=== PATIENT | female | born 1995 | race American Indian/Alaskan Native ===

== ENCOUNTER 2019-03-09 00:25 | Inpatient (IN) | payer MEDICAID ==
[~2019-03-09 00:25] MED LIST: Acetaminophen 325 MG Tab PO PRN; Carboprost Tromethamine 250 MCG/1 ML Amp IM PRN; Lactated Ringers 500 ML IV ONE; Lidocaine 1% 30 ML SDV INJECT PRN; Methylergonovine 0.2 MG/1 ML Amp IM PRN; Misoprostol 400 MCG (4 X 100 MCG TAB) RECTAL PRN; Ondansetron 4 MG/2 ML SDV IV PRN; Oxytocin/Normal Saline 30 UNIT/500 ML BAG IV SCH; Sodium Chloride 0.9% 10 ML Syringe FLUSH PRN; Tranexamic Acid 1,000 MG in Sodium Chloride 0.9% 100 ML IV PRN
[2019-03-09] MEDS: Misoprostol 25 MCG (1/4 of 100 MCG) Tab VAG PRN ×2 (01:38→05:28)
[2019-03-09] MEDS ORDERED: Nalbuphine 10 MG/1 ML Vial IM PRN (01:48)
[2019-03-09] MEDS ORDERED: hydrOXYzine HCl 25 MG Tab PO ONE (01:48)
--- NOTE | 2019-03-09 10:08 | OBOUT ---
DATE: 03/09/2019 TIME: 0048 hours to 0108 hours. REASON FOR NST: 1. Intrauterine at 37 weeks, confirmed by 30-1/7 week ultrasound. 2. Intrahepatic cholestasis of . 3. GBS negative. 4. History of positive gonorrhea and chlamydia during the , treated, and negative on 02/26/2019. 5. Hep C highly positive antibody. 6. Positive amphetamine on urine drug screen on 01/14/2019, and admitted to smoking meth on Saturday03/04/2019. 7. History of HELLP syndrome in 2012. 8. History of 20 second shoulder dystocia, with methamphetamine and THC in previous . 9. 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 10.G4, P3-0-0-3. NST INTERPRETATION: During this time period, heart tone baseline is approximately 125 to 130, there are at least two 15 x 15 beat per minute accelerations, making this reaction. It is also noted to be reassuring. Tocometer reveals potential of 2 contractions. The patient describes occasional cramping. ASSESSMENT: 1. Nonstress test, reactive and reassuring. 2. Tocometer with contractions. PLAN: Please see admit history and physical done through [facility] with records called for, reviewed, and supplemented by patient history in regard to this. Changes include admitting to meth as above, father of baby not involved, not being on Valtrex or other medications as recommended. Shortly after this NST was performed, vaginal exam revealed her to be 1.5 to 2 cm, 60% to 75% effaced, -1 to - 2 station, vertex suspected, and 25 mcg of Cytotec was placed after proper consent obtained. Vitals: Blood pressure 126/70, heart rate 90, and temperature 98.6. Please see H and P for further details. Cytotec placed as above. We will continue to follow clinically and closely. [facility] /[id number]
[2019-03-09] MEDS: Lactated Ringers 1,000 ML IV SCH ×2 (10:53→12:34)
--- NOTE | 2019-03-09 11:50 | PN ---
DATE: 03/09/2019 SUBJECTIVE: The patient does not feel much of her contractions. She thinks she has cramping occasionally. OBJECTIVE: heart tones in the 140s to 150s range, acceleration seen. Tocometer reveals contractions every 2 to 3 minutes. Vaginal exam reveals her to be 3 cm, 75% effaced, 0 to +1 station, vertex suspected. Artificial rupture of membranes done after discussion with the patient yielding copious amounts of fluid. Labs returned. Hemoglobin 10.9. Urine drug screen positive for methamphetamines and amphetamines. The patient is now status post Cytotec x2. ASSESSMENT: Intrauterine at 37 weeks, confirmed with 30-/7-week ultrasound complicated by intrahepatic cholestasis of , now status post Cytotec x2 and artificial rupture of membranes. We will continue to follow clinically and closely. The patient states that she does go fast sometimes when she is in active labor, and we will follow along closely. The patient does have a history of HSV serology that was positive, did not take her antiviral as instructed. She does not have any active lesions by my evaluation earlier today or at this time. She denies any vaginal pain. PLAN: We will continue to follow clinically and closely. [facility] /[id number]
--- NOTE | 2019-03-09 11:56 | PN ---
DATE: 03/09/2019 SUBJECTIVE: The patient is feeling contractions. OBJECTIVE: heart tones are in the 140s to 150s range. Tocometer reveals contractions every 2 to 4 minutes apart. Vaginal exam reveals her to be 4 cm, 80% effaced, 0 to -1 station, vertex suspected. Vaginal leaking still persists. ASSESSMENT AND PLAN: Intrauterine at 37 weeks complicated by intrahepatic cholestasis of , now status post Cytotec x2, then artificial rupture of membranes with slow cervical dilation. We will start Pitocin augmentation and follow clinically and closely. Plans were discussed with the patient. She understands and agrees. [facility] /[id number]
[2019-03-09] MEDS ORDERED: EPINEPHrine 1 MG/1 ML Amp ONE (12:29)
[2019-03-09] MEDS ORDERED: fentaNYL 100 MCG/2 ML SDV ONE (12:29)
[2019-03-09] MEDS ORDERED: Naloxone 2 MG/2 ML Syringe ONE (12:48)
[2019-03-09] MEDS ORDERED: Simethicone 80 MG Tab.Chew PO PRN (13:28)
[2019-03-09] MEDS ORDERED: Oxytocin 10 Units/1 ML SDV IM PRN (13:28)
[2019-03-09] MEDS ORDERED: Sodium Chloride 0.9% 10 ML Syringe FLUSH PRN (13:28)
[2019-03-09] MEDS ORDERED: Benzocaine/Menthol 20%-0.5% Spray 56 GM Canister TOP PRN (13:28)
[2019-03-09] MEDS ORDERED: Zolpidem 5 MG Tab PO PRN (13:28)
--- NOTE | 2019-03-09 13:44 | PCM.PRNOTE ---
- Free Text/Narrative Note: Requested to provide analgesia to full term patient in severe pain. Upon entering the room, patient is lying in bed complaining of severe abdominal/ pelvic pain and discomfort. Pt is positive for methamphetamines and is shaking head left to right, protruding tongue, opening eyes really wide then closing them, and unable to controllably able to hold still. Procedure was discussed with patient including adverse outcomes and expectations but patient is not concentrating on instructions. Pt consented to analgesia, SAB/IT. Pt placed into a proper sitting position but unable to hold still. Landmarks for SAB/IT were identified and marked. Hands were washed and appropriate PPE was applied. Back was prepped with betadine x3. A sterile, transparent, fenestrated drape was applied. Excess betadine was removed. Pt continues to move uncontrollably even without contractions. Using 3 mL of a 1% lidocaine solution, a skin wheel was placed at the L2/L3 interspace. A 24 ga (4 inch) Pencan spinal needle was inserted until positive for CSF. Negative for heme or paresthesias. Injected fentanyl 15 mcg, sufentanil 15 mcg, and 7.5 mg of a 0.75% bupivacaine solution with an epi wash. Pt was placed left lateral position for approximately 20 minutes. Within the first three minutes, pt received relief from the intrathecal and drifted off to sleep. While sleeping, the patient is apneic. She wakes up violently and thrashes arms and head from side to side. Pt was monitored for several minutes with the same results. FHR staying in the 110s to 120s. I elected to give naloxone slowly. First dose was 0.25 mg. Respirations were 1/min and shallow. Repeated the dose in 5 minutes with slightly better results. Third dose was 0.5 mg and patient is awake. Dr Castillo here to assess the patient. Patient was complete and baby was delivered without complications. Will continue to monitor. Procedure Date & Time: 03/09/19 [id number]
[2019-03-09] MEDS: Docusate Sodium 100 MG Cap PO PRN (20:46)
[2019-03-09] MEDS: Ibuprofen 800 MG Tab PO PRN (20:46)
[2019-03-10] MEDS: Ibuprofen 800 MG Tab PO PRN ×2 (08:13→20:43)
[2019-03-10] MEDS: Docusate Sodium 100 MG Cap PO PRN (08:13)
[2019-03-10] MEDS: Prenatal Multivitamin with Calcium/Folic Acid/Iron Tab PO SCH (08:13)
--- NOTE | 2019-03-10 11:27 | DEL ---
DATE: 03/09/2019 PREOPERATIVE DIAGNOSES: 1. Intrauterine at 37 weeks, confirmed with 30 and 1/7-week ultrasound. 2. Intrahepatic cholestasis of . 3. Group B Streptococcus negative. 4. History of positive GC and chlamydia, treated and negative on 02/26/2019. 5. Hepatitis C antibody highly positive. 6. Amphetamine positive urine drug screen on 01/14/2019, and positive on the date of admission, 03/09/2019, for methamphetamine and amphetamine, with admitting to smoking meth on 03/04/2019. 7. History of HELLP syndrome with previous in 2012. 8. History of 20-second shoulder dystocia with previous , complicated by methamphetamine and THC use. 9. HSV serology positive. Did not take antivirals as instructed. No active lesions noted. 10. 4, para 3-0-0-3. 11.Anemia of , hemoglobin 10.9. POSTOPERATIVE DIAGNOSES: 1. Intrauterine at 37 weeks, confirmed with 30 and 1/7-week ultrasound - delivered. 2. Intrahepatic cholestasis of . 3. Group B Streptococcus negative. 4. History of positive GC and chlamydia, treated and negative on 02/26/2019. 5. Hepatitis C antibody highly positive. 6. Amphetamine positive urine drug screen on 01/14/2019, and positive on the date of admission, 03/09/2019, for methamphetamine and amphetamine, with admitting to smoking meth on 03/04/2019. 7. History of HELLP syndrome with previous in 2012. 8. History of 20-second shoulder dystocia with previous , complicated by methamphetamine and THC use. 9. HSV serology positive. Did not take antivirals as instructed. No active lesions noted. 10. 4, para 3-0-0-3. 11.Anemia of , hemoglobin 10.9. 12.Meconium-stained fluid, vernix, placenta, and cord. PROCEDURE PERFORMED: NST, Cytotec x2, artificial rupture of membranes, Pitocin augmentation, and then subsequent spontaneous vaginal delivery. ANESTHESIA/ANALGESIA: The patient did receive an intrathecal in the first stage of labor. ESTIMATED BLOOD LOSS: 150 mL. FINDINGS: Female, scores 8 and 9, weight pending. Meconium-stained fluid, placenta and cord noted, as well as meconium-stained vernix. 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 I was called to the room once the patient was found to be at least 9 cm and had some early decelerations. I donned sterile gown and gloves, evaluated the patient. She was found to be in the second stage of labor. She started pushing with contractions. vertex was delivered in KIKI presentation followed by anterior and posterior shoulder as well as the rest of the without difficulty. Mouth and nares were suctioned. Cord was doubly clamped and cut, and was handed over to the team. It was noted that there was meconium-stained fluid, placenta, cord, and vernix at that time. Then, approximately 10 mL of cord blood was obtained for labs. Placenta then delivered with gentle cord traction and fundal massage within 10 minutes. Perineum, vagina, and perirectal areas were then examined without any tears or lacerations. Mother and infant are currently stable at the time of dictation. [facility] /[id number]
--- NOTE | 2019-03-10 11:41 | PN ---
DATE: 03/09/2019 SUBJECTIVE: The patient is now status post intrathecal. States she is comfortable. OBJECTIVE: Vital Signs: Last blood pressure 93/53, heart rate 67, heart tones in the 120s with early decelerations noted. Tocometer reveals contractions every 2 to 3 minutes. Vaginal exam reveals her to be 9 cm, 100% effaced, 0 to +1 station, vertex suspected. The patient did receive some Narcan. Please see notes in regard to this. This was given after intrathecal. ASSESSMENT AND PLAN: Intrauterine at 37 weeks, confirmed with 30-1/7- week ultrasound with intrahepatic cholestasis of , now nearing second stage of labor. We will continue to follow clinically and closely. Follow heart tones closely as well. Plans were discussed with the patient. She understands and agrees. [facility] /[id number]
--- NOTE | 2019-03-10 14:33 | PN ---
DATE: 03/10/2019 day #1. SUBJECTIVE: The patient is tolerating p.o., ambulating, urinating, and passing flatus. Denies any headaches, visual changes, or upper abdominal pain. She denies any chest pain, shortness of breath, or lightheadedness. OBJECTIVE: Vital Signs: Last temperature was 98.6, heart rate 68, blood pressure 111/69, and respiratory rate 16. Lungs: Clear to auscultation bilaterally. Heart: S1, S2. Regular rate and rhythm. Pelvic: Firm uterus -2 below umbilicus. Extremities: No peripheral edema. No calf pain. LABORATORY DATA: Labs reveal a white cell count of 6.5; hemoglobin 9.6, compared to predelivery hemoglobin 10.9; platelets of 125, compared to predelivery platelet of 152. ASSESSMENT AND PLAN: 1. day #1, status post spontaneous vaginal delivery with complicated by intrahepatic cholestasis of . 2. thrombocytopenia. We will recheck CBC tomorrow. 3. anemia of acute blood loss with hemoglobin dropping down to 9.6. The patient denies any symptoms currently. Vital signs are stable. We will repeat CBC tomorrow. Possible discharge tomorrow discussed with the patient. Of note, the patient's baby is in the NICU in [place] and was transferred there last night. [facility] /[id number]
[2019-03-11 08:06] VITALS: BP 113/73
[2019-03-11] MEDS ORDERED: fentaNYL 100 MCG/2 ML SDV ITHECAL ONE (09:23)
[2019-03-11] MEDS ORDERED: Naloxone 2 MG/2 ML Syringe IV ONE (09:23)
[2019-03-11] MEDS ORDERED: EPINEPHrine 1 MG/1 ML Amp ONE (09:23)
[2019-03-11] MEDS: Prenatal Multivitamin with Calcium/Folic Acid/Iron Tab PO SCH (09:46)
--- NOTE | 2019-03-12 09:00 | DISCH ---
ADMITTING DIAGNOSES: 1. Intrauterine at 37 weeks, confirmed with 30 and 1/7 weeks ultrasound. 2. Intrahepatic cholestasis of . 3. GBS negative. 4. History of positive GC and chlamydia, treated and negative on 02/26/2019. 5. Hep C antibody highly positive. 6. Positive amphetamine on urine drug screen on 01/14/2019, and positive for methamphetamines and amphetamines on date of admission with admitted use on 03/04/2019, by the patient stating she smoked it. 7. History of HELLP syndrome in 2012. 8. History of 20-second shoulder dystocia that was described as mild with previous . 9. HSV serology positive. Did not take antivirals as recommended. 10.G4, P3-0-0-3. DISCHARGE DIAGNOSES: 1. Intrauterine at 37 weeks, confirmed with 30 and 1/7 weeks ultrasound - delivered. 2. Intrahepatic cholestasis of . 3. GBS negative. 4. History of positive GC and chlamydia, treated and negative on 02/26/2019. 5. Hep C antibody highly positive. 6. Positive amphetamine on urine drug screen on 01/14/2019, and positive for methamphetamines and amphetamines on date of admission with admitted use on 03/04/2019, by the patient stating she smoked it. 7. History of HELLP syndrome in 2012. 8. History of 20-second shoulder dystocia that was described as mild with previous . 9. HSV serology positive. Did not take antivirals as recommended. 10.G4, P3-0-0-3. 11.Meconium-stained vernix, fluid, placenta, and cord. 12. thrombocytopenia - resolving on date of discharge. PROCEDURES PERFORMED: NST, Cytotec x2, artificial rupture of membranes, Pitocin augmentation, and spontaneous vaginal delivery per Dr. Castillo. HISTORY OF PRESENT ILLNESS: Please see H and P. SUMMARY OF HOSPITAL COURSE: The patient was admitted on the above date with above diagnoses, underwent the above procedures, then went on to have a spontaneous vaginal delivery within approximately 12 to 13 hours of admission, yielding a female with score of 8 and 9, weighing 3185 g. Please see delivery note for further details. day #1, please see progress note. day #2, on the day of discharge, the patient was tolerating p.o., ambulating, urinating, passing flatus, and requesting discharge. PHYSICAL EXAMINATION: Vital Signs: Last set of vitals revealed temperature 98.3, heart rate 99, blood pressure 113/73, respiratory rate 18. Lungs: Clear to auscultation bilaterally. Heart: S1, S2. Regular rate and rhythm. Abdomen: Firm uterus -1 below umbilicus. EXTREMITIES: No peripheral edema. No calf pain. LABORATORY DATA: Hemoglobin predelivery 10.9; day #1, 9.6; day #2, date of discharge, 9.2. Platelets predelivery 152, down to 125 on 03/10/2019, and on date of discharge 03/11/2019, they were 144. CONDITION ON DISCHARGE COMPARED TO CONDITION ON ADMISSION: Improved. DISCHARGE INSTRUCTIONS: 1. Diet as tolerated. 2. Activity: No lifting more than 20 pounds. No sit-ups, straining, and pelvic rest for the next 6 weeks with immediate return to fertility discussed with the patient. 3. Reasons to return or go to the emergency room were discussed with the patient in detail including, but not limited to, temperature greater than 100.4, foul-smelling discharge, red hot tender breasts, or increased vaginal bleeding. DISCHARGE MEDICATIONS: [id number] Tylenol or ibuprofen for pain, vitamins x6 weeks, and the patient has iron at home to take twice a day and discussed the use of these medications with the patient. FOLLOWUP: Follow up in 6 weeks at [facility] or with Dr. Castillo, call to make an appointment. Of note, baby did go to the NICU on evening of delivery and is currently there according to the patient. [facility] /[id number]
== END 2019-03-11 09:24 | disposition home or self-care (01) | DRG 805 ==
LOC: DL.OB 00:32 → OBSVTOIN 13:16
PROVIDERS: ADMIT Family Medicine; ATTEND Family Medicine
PROC: 10907ZC Drainage of Amniotic Fluid, Therapeutic from Products of Conception, Via Natural or Artificial Opening (ICD-10-PCS; principal; 2019-03-09)
PROC: 10E0XZZ Delivery of Products of Conception, External Approach (ICD-10-PCS; 2019-03-09)
PROC: 3E033VJ Introduction of Other Hormone into Peripheral Vein, Percutaneous Approach (ICD-10-PCS; 2019-03-09)
PROC: 4A1HXFZ Monitoring of Products of Conception, Cardiac Rhythm, External Approach (ICD-10-PCS; 2019-03-09)
PROC: 00HU33Z Insertion of Infusion Device into Spinal Canal, Percutaneous Approach (ICD-10-PCS; 2019-03-09)
PROC: 3E0R3BZ Introduction of Anesthetic Agent into Spinal Canal, Percutaneous Approach (ICD-10-PCS; 2019-03-09)
DX: O26.62 Liver and biliary tract disorders in childbirth (principal); K83.1 Obstruction of bile duct; Z37.0 Single live birth; D62 Acute posthemorrhagic anemia; O98.42 Viral hepatitis complicating childbirth; O99.324 Drug use complicating childbirth; Z3A.37 37 weeks gestation of pregnancy; D69.6 Thrombocytopenia, unspecified; O99.02 Anemia complicating childbirth; B19.20 Unspecified viral hepatitis C without hepatic coma; F15.90 Other stimulant use, unspecified, uncomplicated; O77.0 Labor and delivery complicated by meconium in amniotic fluid
CPT/HCPCS: 36415; 59025; 59409; 80305-QW; 85027; A9270-GY; J0171; J2300; J2310; J2405; J2590; J3010; J7120

== ENCOUNTER 2020-10-12 06:18 | Inpatient (IN) | payer MEDICAID ==
[2020-10-12] MEDS ORDERED: Misoprostol 25 MCG (1/4 of 100 MCG) Tab PO PRN (12:36)
[2020-10-12] MEDS ORDERED: Methylergonovine 0.2 MG/1 ML Amp IM PRN (12:36)
[2020-10-12] MEDS ORDERED: Ondansetron 4 MG/2 ML SDV IVPUSH PRN (12:36)
[2020-10-12] MEDS ORDERED: Sodium Chloride 0.9% 10 ML Syringe FLUSH PRN (12:36)
[2020-10-12] MEDS ORDERED: Carboprost Tromethamine 250 MCG/1 ML Amp IM PRN (12:36)
[2020-10-12] MEDS ORDERED: Misoprostol 400 MCG (4 X 100 MCG TAB) RECTAL PRN (12:36)
[2020-10-12] MEDS ORDERED: Lidocaine 1% 30 ML SDV INJECT PRN (12:36)
[2020-10-12] MEDS ORDERED: fentaNYL 100 MCG/2 ML SDV IVPUSH PRN (12:36)
[2020-10-12] MEDS ORDERED: Lactated Ringers 1,000 ML IV ONE (12:36)
[2020-10-12] MEDS ORDERED: Tranexamic Acid 1,000 MG in Sodium Chloride 0.9% 100 ML IV PRN (12:36)
[2020-10-12] MEDS ORDERED: Acetaminophen 325 MG Tab PO PRN ×2 (12:36)
[2020-10-12] MEDS ORDERED: Oxytocin/Normal Saline 30 UNIT/500 ML BAG IV SCH ×2 (12:45)
[2020-10-12] MEDS ORDERED: Misoprostol 50 MCG (1/2 of 100 MCG) Tab VAG ONE ×2 (13:00→23:45)
[2020-10-12] MEDS: Lactated Ringers 1,000 ML IV SCH (23:26)
[2020-10-13] MEDS ORDERED: Nalbuphine 10 MG/1 ML Vial IM ONE (01:22)
--- NOTE | 2020-10-13 04:31 | HP ---
PRIMARY OB PROVIDER: Madelyn Mares MD HISTORY OF PRESENT ILLNESS/CHIEF COMPLAINT: Joslyn Wheeler is a 24-year-old, G5, P4-0-0-4 at 39 weeks 0 days gestation with an MILIND of 10/19/2020 based on last menstrual period of 01/13/2020, who presents for induction of labor. The patient has been noticing contractions the past few days, increasing in frequency and intensity, across the lower abdomen and radiating to the back. The contractions occur approximately once every 5 minutes. Denies vaginal bleeding or leakage of clear vaginal fluid. No active genital herpes lesions or genital pain. Patient is doing well overall and has no concerns. Induction of labor is indicated at this time based on past obstetric history, see below, and current is complicated by intrahepatic cholestasis of with elevated bile acids as well as elevated liver function enzymes, and low platelets. This evening AST is 47, ALT is 57, and platelet count is 154. The patient is also a current user of methamphetamine, admitting last use approximately 3 or 4 days ago. The patient was late to establish care. The patient has history of ICP, HELLP, thrombocytopenia in , STI in , and shoulder dystocia. She is also positive for hepatitis C virus, HSV 1 and 2, user of cigarettes smoke in and diagnosed with mild recurrent episodes of major depressive disorder on bupropion. OBSTETRIC HISTORY: 1. On 07/23/2012 at 38 weeks 0 days, delivered a term male, 7 pounds 7.3 ounces via spontaneous vaginal delivery. 2. On 09/05/2016, 39 weeks 0 days, delivered term male, 7 pounds 14.1 ounces via spontaneous vaginal delivery, complicated by gestational thrombocytopenia. 3. On 02/09/2018, 38 weeks 5 days delivered a term female, 7 pounds 7.5 ounces via spontaneous vaginal delivery. Complications during includes shoulder dystocia. 4. On 03/09/2019, 37 weeks 0 days, delivered a term female, 7 pounds 0.4 ounces via spontaneous vaginal delivery. was complicated by intrahepatic cholestasis of , gonorrhea infection in , Chlamydia infection in , methamphetamine abuse, meconium and amniotic fluid, and thrombocytopenia affecting . GYNECOLOGIC HISTORY: The patient is positive for HSV1 and 2. No genital lesions currently. The patient is having no perineal pain and no lesions were observed on exam. The patient has taken the past 2 doses of Valtrex, but prior to that had not been adherent to HSV prophylaxis. She has bacterial vaginosis affecting currently and history of sexually transmitted infection in . LABS: ABO/Rh O positive. Antibody screen negative. Rubella antibody positive. Rubella IgG antibody index 2.1. Syphilis antibody nonreactive. Hep B surface antigen nonreactive. HIV negative. Gonorrhea not detected. Chlamydia not detected. Hepatitis C antibody positive. Glucose screen passed. Group B Streptococcus negative. ADMISSION LABS: White blood cell count 6.9, RBC is 4.61, hemoglobin 12.3, hematocrit 38.7, MCV 83.9, MCH 26.7, MCHC 31.8, and platelet count 154. BUN 11, uric acid 5.3, AST 46, and ALT 57. Urinalysis within normal limits. Negative for proteinuria. Toxicology screen significant for positive amphetamine and methamphetamine. SARS-CoV-2 RNA (SUKHJINDER) negative. Hep C virus quant currently pending. PAST MEDICAL HISTORY: 1. Intrahepatic cholestasis of , antepartum. 2. History of HELLP syndrome in prior . 3. History of benign thrombocytopenia in prior . 4. History of STI in prior . 5. Hepatitis C virus antibody positive, quant HCV pending. 6. HSV1 and 2 antibody positive. 7. Current user of methamphetamine in . 8. Current user of tobacco cigarettes in , 5 cigarettes/day. 9. Mild recurrent episode of recurrent major depressive disorder, currently treated with bupropion. 10.History of anesthesia reaction, requiring naloxone x3 following fentanyl- containing intrathecal. 11.Late care in current . 12.Lack of transportation in current . 13.G5, P4-0-0-4. 14.Finger fracture in 2018, oblique fracture extending into the PIP joint of the left ring finger. PAST SURGICAL HISTORY: 1. [place]/baby teeth extraction. 2. Hernia repair, epigastric, 04/01/2014. 3. Laparoscopic cholecystectomy 04/07/2015. PRIOR TO ADMISSION MEDICATIONS: 1. vitamin, 27-1 mg tab, taking sporadically. 2. Bupropion 150 mg XL tabs. 3. Ferrous sulfate 325 mg, taking sporadically. 4. Valacyclovir 500 mg tabs, taking sporadically. 5. Metronidazole 500 mg course, taking sporadically. ALLERGIES: No known allergies. SOCIAL HISTORY: Current everyday smoker consuming about 3 cigarettes per day. Denies alcohol use in . She is using marijuana and methamphetamines. Most recent methamphetamine use approximately 3 days ago. UDA on admission was positive for amphetamines and methamphetamines and negative for THC. The patient is currently living with her 2 sons. Her daughter lives with her father in [place]. Father of baby is Kenn Major, but they are not together. This is the same father of baby as her 3 youngest children. She is not working currently. FAMILY HISTORY: Family history significant for asthma in her mother, diabetes in maternal grandmother, heart disease in her maternal grandfather, multiple gestations in a cousin, hepatitis C in her mother, and seizures in her maternal uncle. Negative family history of defects, anesthesia problems, clotting disorder, bleeding problems, or cystic fibrosis. REVIEW OF SYSTEMS: General: Denies any fatigue or malaise, appetite change, weight changes, recent illness, fevers, or chills. Dermatologic: Positive for pruritus. Decreasing in severity. Denies skin lesions or perineal lesions. Respiratory: Denies shortness of breath. Cardiovascular: Denies chest pain. Denies lower extremity edema. Gastrointestinal: Denies change to bowel or bladder. Genitourinary: Denies vaginal bleeding or change in vaginal discharge. Neuromuscular: Denies muscle pain, muscle weakness, or joint pain. Neurologic: Denies headache. PHYSICAL EXAMINATION: Admission Vitals: Blood pressure 127/77, pulse 81 beats per minute, height 5 feet 2 inches, and weight 147. General Appearance: The patient is alert, well appearing, in no acute distress. Lungs: Clear to auscultation bilaterally with no adventitial breath sounds and symmetric air entry. Heart: RRR, S1 and S2. No murmurs. Abdomen: Gravid. FHT present. FHT category 1, baseline 130 with moderate variability, appears reactive and reassuring with no decelerations. Tocometry shows contractions approximately once every 5 minutes. Pelvic: Normal female external genitalia. No perineal lesions. Cervical: Cervix is dilated to 4+ cm, 75% effaced, head well applied. Extremities: No peripheral edema, redness or tenderness in the calves. Negative Candace's sign. Skin: Normal color and turgor, no rashes. ASSESSMENT AND PLAN: Joslyn Chavelas is a 24-year-old, G5, P4-0-0-4 at 39 weeks 0 days, estimated by last menstrual period, admitted for induction of labor secondary to intrahepatic cholestasis of , elevated liver enzymes, and thrombocytopenia, who represent in labor. Hemoglobin on admission 12.3 and platelets 154. AST 46 and ALT 57. 1. Maternal well-being: Good. 2. well-being: FHT category 1. 3. Labor: Upon evaluation, cervix was found to be dilated 4+ cm. The decision was made to forego a Cytotec induction and proceed with Pitocin at this time to further augment labor. 4. GBS status: Negative. 5. Pain management: The patient denies desiring intrathecal at this time. Alternative pain management strategies were discussed and the patient agrees with the plan. We will continue to monitor the patient's status. The patient discussed with Dr. Madelyn Tian. [facility] /[id number] [facility]
[2020-10-13] MEDS: Lactated Ringers 1,000 ML IV SCH (04:33)
[2020-10-13] MEDS ORDERED: Docusate Sodium 100 MG Cap PO PRN (07:00)
[2020-10-13] MEDS ORDERED: Acetaminophen 325 MG Tab PO PRN (07:00)
[2020-10-13] MEDS ORDERED: Simethicone 80 MG Tab.Chew PO PRN (07:00)
[2020-10-13] MEDS ORDERED: Oxytocin 10 Units/1 ML SDV IM PRN (07:00)
[2020-10-13] MEDS ORDERED: Zolpidem 5 MG Tab PO PRN (07:00)
[2020-10-13] MEDS ORDERED: Carboprost Tromethamine 250 MCG/1 ML Amp IM PRN (07:00)
[2020-10-13] MEDS ORDERED: Benzocaine/Menthol 20%-0.5% Spray 56 GM Canister TOP PRN (07:00)
[2020-10-13] MEDS ORDERED: Tranexamic Acid 1,000 MG in Sodium Chloride 0.9% 100 ML IV PRN (07:00)
[2020-10-13] MEDS ORDERED: Misoprostol 400 MCG (4 X 100 MCG TAB) RECTAL PRN (07:00)
[2020-10-13] MEDS ORDERED: Ibuprofen 800 MG Tab PO PRN (07:00)
[2020-10-13] MEDS ORDERED: Sodium Chloride 0.9% 10 ML Syringe FLUSH PRN (07:00)
[2020-10-13 10:00] VITALS: BP 103/61; PULSE 66
--- NOTE | 2020-10-13 10:15 | OR ---
DELIVERY NOTE DATE: 10/13/2020 PREOPERATIVE DIAGNOSES: 1. G5, P4-0-0-4 with an intrauterine at 39 weeks 0 days. MILIND of 10/19/2020 based on last menstrual period of 01/13/2020. 2. Presentation for medical induction of labor, presenting in labor. 3. Intrahepatic cholestasis of antepartum. 4. History of HELLP syndrome in prior . 5. History of benign thrombocytopenia in prior . 6. History of STI in current . 7. Hepatitis C virus antibody positive. Quant HCV pending. 8. HSV 1 and 2 antibody positive. 9. Current user of methamphetamine in . 10.Current user of tobacco cigarettes in , 5 cigarettes per day. 11.Mild recurrent episode of recurrent major depressive disorder, currently treated with bupropion. 12.History of anesthesia reaction requiring naloxone x3 following fentanyl containing intrathecal. 13.Late care in current . 14.Lack of transportation in current . 15.G5, P4-0-0-4. 16.History of shoulder dystocia in prior . 17.History of anemia in prior . POSTOPERATIVE DIAGNOSES: 1. G5, now P5-0-0-5 with intrauterine at 39 weeks 0 days with an MILIND 10/19/2020 based on last menstrual period of 01/13/2020. 2. Presentation for medical induction of labor, presenting in labor. 3. Spontaneous rupture of membranes at 06:02. 4. Group B Streptococcus negative. 5. Intrahepatic cholestasis of with elevated bile acids. 6. Elevated liver enzymes, antepartum. 7. Low platelets in, antepartum. 8. History of ICP, HELLP, benign thrombocytopenia, anemia, STI, and shoulder dystocia in prior . 9. Hepatitis C virus antibody positive. Quant hepatitis C pending. 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 11.Methamphetamine use in current . 12.Tobacco use in current , smoking 5 cigarettes per day. 13.Mild episode recurrent major depressive disorder, currently on bupropion. 14.History of anesthesia reaction, requiring naloxone x3 following fentanyl containing intrathecal. 15.Late care in current . 16.Lack of transportation in current . 17.G5, P5-0-0-5. PROCEDURES PERFORMED: Augmentation of labor with Pitocin and spontaneous vaginal delivery. ANESTHESIA/ANALGESIA: None. ESTIMATED BLOOD LOSS: 300 mL. FINDINGS: Female with scores of 8 and 9 at 1 and 5 minutes respectively. 8 pounds, 9.216 ounces. SUMMARY OF EVENTS: This 24-year-old, G5, now P5-0-0-5 with an intrauterine at 39 weeks 0 days based on an LMP of 01/13/2020, presents for induction of labor with medical indication of intrahepatic cholestasis of . The patient was in labor upon presentation. Labor was augmented with Pitocin and spontaneous rupture of membranes was accomplished at 06:02 and delivery at 6:18. Group B Streptococcus negative. Mother delivered a viable female. Delivery was spontaneous vaginal accomplished under sterile field with no anesthesia. Position was KIKI. Complications for umbilical cord were none. Infant was stimulated vigorously. Cord was clamped and cut and then baby was taken to the warmer to further stimulate and secure airway. Complications with delivery none. Placenta with 3 vessel cord was delivered spontaneously intact and completely. Cord blood was collected. The perineum had no lacerations. 30 units of Pitocin were administered IV after placental delivery. Estimated blood loss was 300 mL. Infant and mother are currently recovering well in the patient's room and the patient is currently breast-feeding. We will continue to monitor mother and closely and provide appropriate cares. MODL /[id number] MTDD
--- NOTE | 2020-10-14 04:52 | DISCH ---
REASON FOR ADMISSION: Induction of labor, presenting in labor. OBSTETRIC HISTORY: G5, P5005, following term vaginal delivery at 39 weeks 0 days with an MILIND of 10/19/2020, based on LMP on 01/13/2020. 1. Spontaneous rupture of membranes at 6:02 a.m. 2. Complicated by intrahepatic cholestasis of antepartum. 3. History of HELLP syndrome in prior . 4. History of benign thrombocytopenia in prior . 5. History of STI in current . 6. Hepatitis C virus antibody positive. HCV pending. 7. HSV 1 and 2 antibody positive. No active lesions 8. Current user of methamphetamines in . 9. Current user of tobacco cigarettes in , 5 cigarettes per day. 10. Recurrent episode of recurrent major depressive disorder, currently treated with bupropion. 11. History of anesthesia reaction requiring naloxone x3 following fentanyl containing intrathecal. 12. Late care in current . 13. Lack of transportation in current . 14. History of shoulder dystocia in prior . 15. History of anemia in prior . DELIVERY: Sex: Female. Weight: 8 pounds 9 ounces. scores: 8 and 9 at 1 and 5 minutes respectively. PROCEDURES PERFORMED: Augmentation of labor with Pitocin and spontaneous vaginal delivery. PROBLEM LIST: G5, P5-0-0-5 following spontaneous vaginal delivery at 39 weeks 0 days with an MILIND of 10/19/2020, based on LMP of 01/13/2020. 1. GBS negative. 2. Complicated by intrahepatic cholestasis of with elevated bile acids. 3. Elevated liver enzymes antepartum. 4. Low platelets antepartum. 5. Hepatitis C virus antibody positive. Quant hepatitis C pending. 6. History of HSV 1 and 2 positive. 7. Methamphetamine use in current . 8. Tobacco use in current , smoking 5 cigarettes per day. 9. Recurrent major depressive disorder, currently on bupropion. 10. Late care in current 11. Lack of transportation in current PROGRESS NOTE: SUBJECTIVE: Would like to return home as soon as possible. She is requesting discharge. She is ambulating, voiding, tolerating p.o. Pain is controlled. OBJECTIVE: Vital Signs: T 96.9 F, HR 66, BP 103/61, RR 16 General: Alert, no acute distress. Deferred the remainder of the physical exam, see initial H and P. RECENT LABS: WBC 6.9, HGB 12.3, platelet count 154, AST 46, ALT 57. ASSESSMENT AND PLAN: Joslyn Wheeler is a G5, P5005 patient at day #0 following spontaneous vaginal delivery. 1. Maternal well-being: Meeting milestones. 2. well-being. Baby is in the nursery, bottle-feeding. DISPOSITION: Routine cares. Advance activity. The patient is requesting discharge home immediately. We will follow up in clinic in [address] Tian for visit. Baby will remain at L&D unit for further observation and cares. HOSPITAL COURSE: The patient presented for delivery. Delivery occurred without significant issue. Recovery was uncomplicated. The patient was discharged home in good condition. DISCHARGE DISPOSITION: Home. FOLLOWUP APPOINTMENTS: Six weeks with Dr. Tian in clinic for visit. NICK MezaII MODL /[id number] NURYS
== END 2020-10-13 15:00 | disposition home or self-care (01) | DRG 805 ==
LOC: DL.OB 06:18 → EDSTATUS 13:00 → OBSVTOIN 10-13 06:18 → EEVIPCON 10-13 06:18
PROVIDERS: ADMIT Family Medicine; ATTEND Family Medicine
PROC: 10E0XZZ Delivery of Products of Conception, External Approach (ICD-10-PCS; principal; 2020-10-13)
DX: O26.62 Liver and biliary tract disorders in childbirth (principal); K83.1 Obstruction of bile duct; Z37.0 Single live birth; O99.324 Drug use complicating childbirth; F33.9 Major depressive disorder, recurrent, unspecified; O99.12 Other diseases of the blood and blood-forming organs and certain disorders involving the immune mechanism complicating childbirth; Z3A.39 39 weeks gestation of pregnancy; O99.334 Smoking (tobacco) complicating childbirth; F17.210 Nicotine dependence, cigarettes, uncomplicated; F15.90 Other stimulant use, unspecified, uncomplicated; O99.344 Other mental disorders complicating childbirth; D69.6 Thrombocytopenia, unspecified; R74.8 Abnormal levels of other serum enzymes; Z20.822 Contact with and (suspected) exposure to COVID-19
CPT/HCPCS: 36415; 59409; 80305-QW; 81003; 82570; 84156; 84450; 84460; 84520; 84550; 85027; 87522; A9270-GY; J2300; J2590; J7120; U0002

== ENCOUNTER 2022-01-15 18:54 | Inpatient (IN) | payer MEDICAID ==
[2022-01-15] MEDS ORDERED: Penicillin G Potassium 5,000,000 Unit Vial ONE (20:05)
[2022-01-15] MEDS ORDERED: Ondansetron 4 MG/2 ML SDV IVPUSH PRN (20:15)
[2022-01-15] MEDS ORDERED: Methylergonovine 0.2 MG/1 ML Amp IM PRN (20:15)
[2022-01-15] MEDS ORDERED: Oxytocin/Normal Saline 30 UNIT/500 ML BAG IV SCH (20:15)
[2022-01-15] MEDS ORDERED: Tranexamic Acid 1,000 MG in Sodium Chloride 0.9% 100 ML IV PRN (20:15)
[2022-01-15] MEDS ORDERED: Penicillin G Potassium 5 MILLUNITS in Sodium Chloride 0.9% 100 ML IV ONE (20:15)
[2022-01-15] MEDS ORDERED: Lidocaine 1% 30 ML SDV INJECT PRN (20:15)
[2022-01-15] MEDS ORDERED: Sodium Chloride 0.9% 10 ML Syringe FLUSH PRN (20:15)
[2022-01-15] MEDS ORDERED: Lactated Ringers 1,000 ML IV SCH (20:15)
[2022-01-15] MEDS ORDERED: Lactated Ringers 1,000 ML IV ONE (20:15)
[2022-01-15] MEDS ORDERED: Carboprost Tromethamine 250 MCG/1 ML Amp IM PRN (20:15)
[2022-01-15] MEDS ORDERED: Misoprostol 400 MCG (4 X 100 MCG TAB) RECTAL PRN (20:15)
[2022-01-15] MEDS: fentaNYL 100 MCG/2 ML SDV IVPUSH PRN ×2 (21:18→23:10)
[2022-01-15 21:38] LABS: AMPHETAMINES,URINE NEGATIVE (NEGATIVE); BARBITURATES,URINE NEGATIVE (NEGATIVE); BENZODIAZEPINE,URINE NEGATIVE (NEGATIVE); MDMA (ECSTASY), URINE NEGATIVE (NEGATIVE); METHADONE,URINE NEGATIVE (NEGATIVE); METHAMPHETAMINES,URINE POSITIVE (NEGATIVE); OPIATES,URINE NEGATIVE (NEGATIVE); OXYCODONE,URINE NEGATIVE (NEGATIVE); PHENCYCLIDINE,URINE NEGATIVE (NEGATIVE); TCA,URINE NEGATIVE (NEGATIVE)
[2022-01-15] MEDS ORDERED: Simethicone 80 MG Tab.Chew PO PRN (23:30)
[2022-01-15] MEDS ORDERED: Benzocaine/Menthol 20%-0.5% Spray 78 GM Cannister TOP PRN (23:30)
[2022-01-16] MEDS: Docusate Sodium 100 MG Cap PO PRN ×2 (07:53→21:44)
[2022-01-16] MEDS: Ibuprofen 800 MG Tab PO PRN ×2 (07:53→20:10)
[2022-01-16] MEDS: Ferrous Sulfate 325 MG Tab PO SCH ×3 (07:53→21:44)
[2022-01-16] MEDS: Prenatal Multivitamin with Calcium/Folic Acid/Iron Tab PO SCH ×2 (07:53→08:01)
[2022-01-16] MEDS: Sertraline 50 MG Tab PO SCH ×2 (07:53→08:01)
[2022-01-16] MEDS: Acetaminophen 325 MG Tab PO PRN ×2 (07:54→20:10)
[2022-01-17 00:49] VITALS: PULSE 68
[2022-01-17] MEDS: Sertraline 50 MG Tab PO SCH (08:15)
[2022-01-17] MEDS: Prenatal Multivitamin with Calcium/Folic Acid/Iron Tab PO SCH (08:16)
[2022-01-17] MEDS: Ibuprofen 800 MG Tab PO PRN (08:16)
[2022-01-17] MEDS: Ferrous Sulfate 325 MG Tab PO SCH (08:16)
[2022-01-17 08:27] VITALS: BP 122/77
[2022-01-17 11:47] LABS: C.TRACHOMATIS BY TMA Negative (Negative); N.GONORRHOEAE BY TMA Negative (Negative)
== END 2022-01-17 14:10 | disposition home or self-care (01) | DRG 806 ==
LOC: DL.OBCHECK 18:54 → DL.OB 19:00 → OBSVTOIN 23:03
PROVIDERS: ADMIT Family Medicine; ATTEND Family Medicine
PROC: 10E0XZZ Delivery of Products of Conception, External Approach (ICD-10-PCS; principal; 2022-01-15)
PROC: 3E0234Z Introduction of Serum, Toxoid and Vaccine into Muscle, Percutaneous Approach (ICD-10-PCS; 2022-01-17)
DX: O99.12 Other diseases of the blood and blood-forming organs and certain disorders involving the immune mechanism complicating childbirth (principal); D62 Acute posthemorrhagic anemia; Z37.0 Single live birth; D69.6 Thrombocytopenia, unspecified; O99.02 Anemia complicating childbirth; F15.10 Other stimulant abuse, uncomplicated; O99.324 Drug use complicating childbirth; O99.334 Smoking (tobacco) complicating childbirth; F17.210 Nicotine dependence, cigarettes, uncomplicated; Z3A.37 37 weeks gestation of pregnancy; Z23 Encounter for immunization; Z20.822 Contact with and (suspected) exposure to COVID-19
CPT/HCPCS: 36415; 80305-QW; 84450; 84460; 85027; 86592; 86762; 86803; 87081; 87340; 87389; 87491; 87522; 87591; A9270-GY; J2540; J2590; J3010; J7120; U0002

== ENCOUNTER 2023-02-21 11:38 | Inpatient (IN) | payer MEDICAID ==
[2023-02-21 13:19] LABS: HEMATOCRIT 30.9 % (37.0-47.0); HEMOGLOBIN 9.2 g/dL (12.0-16.0); MEAN CORPUSCULAR HEMOGLOBIN 21.5 pg (27.0-34.0); MEAN CORPUSCULAR HGB CONC 29.8 g/dL (33.0-35.0); MEAN CORPUSCULAR VOLUME 72.4 fL (80-100); RED BLOOD CELL COUNT 4.27 10^6/uL (4.2-5.4); WHITE BLOOD CELL COUNT,WBC 5.3 10^3/uL (5.0-10.0)
[2023-02-21 13:35] LABS: ALANINE AMINOTRANSFERASE,ALT 20 U/L (14-59); ASPARTATE AMNIOTRANSFERASE,AST 25 U/L (15-37)
[2023-02-21] MEDS ORDERED: Carboprost Tromethamine 250 MCG/1 ML Amp IM PRN (13:51)
[2023-02-21] MEDS ORDERED: Misoprostol 400 MCG (4 X 100 MCG TAB) RECTAL PRN (13:51)
[2023-02-21] MEDS ORDERED: Lactated Ringers 1,000 ML IV ONE (13:51)
[2023-02-21] MEDS ORDERED: Nalbuphine 20 MG/1 ML Amp IM PRN (13:51)
[2023-02-21] MEDS ORDERED: Tranexamic Acid 1,000 MG in Sodium Chloride 0.9% 100 ML IV PRN (13:51)
[2023-02-21] MEDS ORDERED: fentaNYL 100 MCG/2 ML SDV IVPUSH PRN (13:51)
[2023-02-21] MEDS ORDERED: Methylergonovine 0.2 MG/1 ML Amp IM PRN (13:51)
[2023-02-21] MEDS ORDERED: Sodium Chloride 0.9% 10 ML Syringe FLUSH PRN (13:51)
[2023-02-21] MEDS ORDERED: Misoprostol 25 MCG (1/4 of 100 MCG) Tab VAG PRN (13:51)
[2023-02-21] MEDS ORDERED: Lidocaine 1% 30 ML SDV INJECT ONE (13:51)
[2023-02-21] MEDS ORDERED: Acetaminophen 325 MG Tab PO PRN ×2 (13:51)
[2023-02-21] MEDS ORDERED: Phenylephrine HCl In 0.9% NaCl 1 MG/10 ML Syringe IVPUSH PRN ×2 (14:00→22:06)
[2023-02-21] MEDS ORDERED: Oxytocin/Normal Saline 30 UNIT/500 ML BAG IV SCH ×2 (14:00)
[2023-02-21] MEDS ORDERED: Ropivacaine 200 MG in Premix Bag 1 BAG EPIDUR SCH ×2 (14:00→22:15)
[2023-02-21] MEDS ORDERED: ePHEDrine 50 MG/ML SDV IVPUSH PRN ×2 (14:00→22:06)
[2023-02-21] MEDS ORDERED: Misoprostol 50 MCG (1/2 of 100 MCG) Tab VAG ONE (14:45)
[2023-02-21] MEDS ORDERED: Penicillin G Potassium 5 MILLUNITS in Sodium Chloride 0.9% 100 ML IV ONE (15:00)
[2023-02-21] MEDS: Lactated Ringers 1,000 ML IV SCH ×2 (15:00→21:49)
[2023-02-21 15:50] LABS: AMPHETAMINES,URINE NEGATIVE (NEGATIVE); BARBITURATES,URINE NEGATIVE (NEGATIVE); BENZODIAZEPINE,URINE NEGATIVE (NEGATIVE); MDMA (ECSTASY), URINE NEGATIVE (NEGATIVE); METHADONE,URINE NEGATIVE (NEGATIVE); METHAMPHETAMINES,URINE NEGATIVE (NEGATIVE); OPIATES,URINE NEGATIVE (NEGATIVE); OXYCODONE,URINE NEGATIVE (NEGATIVE); PHENCYCLIDINE,URINE NEGATIVE (NEGATIVE); TCA,URINE NEGATIVE (NEGATIVE)
[2023-02-21 17:26] LABS: CREATININE,URINE RAND < 13.00 mg/dL (No establ ref range); PROTEIN,URINE RANDOM < 6.0 mg/dL (0.0-11.9)
[2023-02-21] MEDS ORDERED: Diphtheria,Pertussis(Acell),Tetanus Vaccine 0.5 ML Syringe IM ONE (18:39)
[2023-02-21] MEDS: Penicillin G Potassium 3 MILLUNITS in Sodium Chloride 0.9% 100 ML IV SCH ×2 (19:30→23:30)
[2023-02-21] MEDS ORDERED: Sodium Chloride 0.9% 10 ML Syringe FLUSH SCH (21:00)
[2023-02-21] MEDS: Ondansetron 4 MG/2 ML SDV IVPUSH PRN (21:40)
[2023-02-21] MEDS ORDERED: fentaNYL 100 MCG/2 ML SDV ONE (21:42)
[2023-02-21] MEDS ORDERED: Bupivacaine 0.25% 10 ML SDV ONE (21:42)
[2023-02-22] MEDS ORDERED: Acetaminophen 325 MG Tab PO PRN (00:46)
[2023-02-22] MEDS ORDERED: Benzocaine/Menthol 20%-0.5% Spray 78 GM Cannister TOP PRN (00:46)
[2023-02-22] MEDS ORDERED: Carboprost Tromethamine 250 MCG/1 ML Amp IM PRN (00:46)
[2023-02-22] MEDS ORDERED: Oxytocin 10 Units/1 ML SDV IM PRN (00:46)
[2023-02-22] MEDS ORDERED: Witch Hazel Medicated Pads 100/Jar TOP PRN (00:46)
[2023-02-22] MEDS ORDERED: Sodium Chloride 0.9% 10 ML Syringe FLUSH PRN (00:46)
[2023-02-22] MEDS ORDERED: Misoprostol 400 MCG (4 X 100 MCG TAB) RECTAL PRN (00:46)
[2023-02-22] MEDS ORDERED: Simethicone 80 MG Tab.Chew PO PRN (00:46)
[2023-02-22] MEDS: Ondansetron 4 MG/2 ML SDV IVPUSH PRN (01:01)
[2023-02-22] MEDS ORDERED: Metoclopramide 10 MG/2 ML SDV IVPUSH ONE (01:33)
[2023-02-22] MEDS: Ibuprofen 800 MG Tab PO PRN ×2 (05:44→14:02)
[2023-02-22] MEDS: Prenatal Multivitamin with Calcium/Folic Acid/Iron Tab PO SCH (09:20)
[2023-02-22] MEDS: Ferrous Sulfate 325 MG Tab PO SCH (09:20)
[2023-02-22] MEDS: Docusate Sodium 100 MG Cap PO PRN (09:21)
[2023-02-22] MEDS: Sertraline 50 MG Tab PO SCH (18:12)
[2023-02-22] MEDS: Penicillin G Potassium 3 MILLUNITS in Sodium Chloride 0.9% 100 ML IV SCH (20:55)
[2023-02-23] MEDS: Ibuprofen 800 MG Tab PO PRN ×3 (01:39→19:26)
[2023-02-23 07:32] LABS: HEMATOCRIT 29.3 % (37.0-47.0); HEMOGLOBIN 8.6 g/dL (12.0-16.0); MEAN CORPUSCULAR HEMOGLOBIN 21.4 pg (27.0-34.0); MEAN CORPUSCULAR HGB CONC 29.4 g/dL (33.0-35.0); MEAN CORPUSCULAR VOLUME 73.1 fL (80-100); RED BLOOD CELL COUNT 4.01 10^6/uL (4.2-5.4); WHITE BLOOD CELL COUNT,WBC 6.7 10^3/uL (5.0-10.0)
[2023-02-23] MEDS: Prenatal Multivitamin with Calcium/Folic Acid/Iron Tab PO SCH (09:20)
[2023-02-23] MEDS: Sertraline 50 MG Tab PO SCH (09:20)
[2023-02-23] MEDS: Ferrous Sulfate 325 MG Tab PO SCH (09:20)
[2023-02-23] MEDS: Docusate Sodium 100 MG Cap PO PRN ×2 (09:21→19:26)
[2023-02-23] MEDS ORDERED: Zolpidem 5 MG Tab PO SCH (21:00)
[2023-02-24] MEDS: Docusate Sodium 100 MG Cap PO PRN (08:53)
[2023-02-24] MEDS: Ibuprofen 800 MG Tab PO PRN (08:53)
[2023-02-24] MEDS: Prenatal Multivitamin with Calcium/Folic Acid/Iron Tab PO SCH (08:53)
[2023-02-24] MEDS: Sertraline 50 MG Tab PO SCH (08:53)
[2023-02-24] MEDS: Ferrous Sulfate 325 MG Tab PO SCH (08:53)
[2023-02-24 09:01] VITALS: BP 109/59; PULSE 76
[2023-02-27 22:42] LABS: CHENODEOXYCHOLIC ACIDS 2.9 umol/L; CHOLIC ACIDS 5.1 umol/L; TOTAL BILE ACIDS 8.8 umol/L; URSODEOXYCHOLIC ACIDS <0.10 umol/L
== END 2023-02-24 12:30 | disposition home or self-care (01) | DRG 806 ==
LOC: DL.OBCHECK 11:38 → DL.OB 13:50 → OBSVTOIN 02-22 00:19
PROVIDERS: ADMIT Family Medicine; ATTEND Family Medicine
PROC: 10E0XZZ Delivery of Products of Conception, External Approach (ICD-10-PCS; principal; 2023-02-22)
PROC: 10907ZC Drainage of Amniotic Fluid, Therapeutic from Products of Conception, Via Natural or Artificial Opening (ICD-10-PCS; 2023-02-22)
PROC: 3E0P7VZ Introduction of Hormone into Female Reproductive, Via Natural or Artificial Opening (ICD-10-PCS; 2023-02-22)
PROC: 3E0R3BZ Introduction of Anesthetic Agent into Spinal Canal, Percutaneous Approach (ICD-10-PCS; 2023-02-22)
PROC: 00HU33Z Insertion of Infusion Device into Spinal Canal, Percutaneous Approach (ICD-10-PCS; 2023-02-22)
DX: O75.3 Other infection during labor (principal); D62 Acute posthemorrhagic anemia; Z37.0 Single live birth; O98.32 Other infections with a predominantly sexual mode of transmission complicating childbirth; O99.12 Other diseases of the blood and blood-forming organs and certain disorders involving the immune mechanism complicating childbirth; O99.324 Drug use complicating childbirth; O99.344 Other mental disorders complicating childbirth; F32.A Depression, unspecified; Z3A.38 38 weeks gestation of pregnancy; O99.824 Streptococcus B carrier state complicating childbirth; D69.6 Thrombocytopenia, unspecified; O99.334 Smoking (tobacco) complicating childbirth; F12.10 Cannabis abuse, uncomplicated; O26.893 Other specified pregnancy related conditions, third trimester; L29.9 Pruritus, unspecified; B96.89 Other specified bacterial agents as the cause of diseases classified elsewhere; O99.02 Anemia complicating childbirth; F17.210 Nicotine dependence, cigarettes, uncomplicated; A63.0 Anogenital (venereal) warts; G47.00 Insomnia, unspecified; Z90.49 Acquired absence of other specified parts of digestive tract; Z87.440 Personal history of urinary (tract) infections
CPT/HCPCS: 01967; 36415; 51701; 59025; 59409; 80305-QW; 82542; 82570; 84112; 84156; 84450; 84460; 85027; 86850; 86900; 86901; 86920; 86922; A9270-GY; J2405; J2540; J2590; J2795; J3490; J7120